=== PATIENT | female | born 1965 | race Caucasian/White ===

== ENCOUNTER → 2023-06-21 17:25 | Outpatient (REF) | payer OTHER, SELFPAY | LOC: HWWDC 17:25 | PROVIDERS: ATTENDING PHYSICIAN Nurse Practitioner Family | DX: Z12.31 Encounter for screening mammogram for malignant neoplasm of breast (principal) | CPT/HCPCS: 77063; 77067 ==

== ENCOUNTER → 2025-01-22 11:46 | Outpatient (REF) | payer OTHER, SELFPAY | LOC: HWWDC 11:46 | PROVIDERS: ATTENDING PHYSICIAN Family Medicine | DX: Z12.31 Encounter for screening mammogram for malignant neoplasm of breast (principal) | CPT/HCPCS: 77063; 77067 ==